=== PATIENT | male | born 1975 | race Two or more races ===

== ENCOUNTER 2016-06-09 18:28 | Emergency (ER) | payer OTHER ==
--- NOTE | 2016-06-09 19:41 | DX ---
PA and Lateral Chest History: Productive cough x1 week worsening today in a 40-year-old male; no previous studies are avai lable for comparison. Findings: The heart and mediastinal contours are normal. Pulmonary vascularity is normal. There is c entral peribronchial thickening. Mild hyperexpansion is suspected. No pleural effusion is seen. There are no alveolar opacities seen to suggest pneumonia. Impression: Findings most consistent with bronchitis are noted.
[2016-06-09] MEDS ORDERED: ACETAMINOPHEN 500 MG TAB PO ONE (21:45)
[2016-06-09] MEDS ORDERED: ACETAMINOPHEN 500 MG TAB ONE (21:46)
[2016-06-09 22:29] VITALS: RESP 18
--- NOTE | 2016-06-09 23:09 | EDPHY ---
H & P Time Seen by Provider: 06/09/16 22:02 HPI/ROS: HPI Cough. 40-year-old male by private vehicle. Primary care is through [facility]. Patient is HIV positive. He is currently not on anti retroviral therapy. He complains of a cough with muscle aches and joint aches for the last week. He reports that before this he had a diarrheal illness. He reports that he was seen at [facility] about a week ago for this complaint. He has not been placed on antibiotics. He reports he has been vaccinated for influenza. Cough is described as dry. He denies fever. He has been feeling more fatigued lately. ROS: Constitutional: No fever, no chills. As above. Eyes: No discharge. No changes in vision. ENT: No sore throat. No nasal congestion or rhinorrhea. Respiratory: As above. No shortness of breath. Cardiac: No chest pain, no palpitations. Gastrointestinal: No abdominal pain, no vomiting, no diarrhea. Genitourinary: No hematuria. No dysuria or increased frequency with urination. Musculoskeletal: No back pain. No neck pain. No myalgias or arthralgias. Skin: No rashes. Neurological: No headache. No focal weakness or altered sensation. Past medical history: As above Social history: He is here by himself. Nonsmoker. Methamphetamine abuse. Homeless. Physical Exam: General Appearance: Alert, sleepy but easily arousable. This patient is responding to questions appropriately and in full sentences. This patient appears well-hydrated and well-nourished. Eyes: Pupils equal and round no pallor or injection. No lid edema, erythema or injection. ENT, Mouth: Mucous membranes are moist. No thrush. The pharyngeal tissues are unremarkable. No edema or swelling. No asymmetry suggestive of abscess. No erythema or exudates. Respiratory: There are no retractions, lungs are clear to auscultation with good air movement bilaterally. Cardiovascular: Regular rate and rhythm. No murmur. Gastrointestinal: Abdomen is soft and nontender, no masses, bowel sounds normal. No focal tenderness at McBurney's point. No Gutierrez sign. Neurological: Motor sensory function is grossly intact. Cranial nerves are normal. Gait is normal. Skin: Warm and dry, no rashes. Musculoskeletal: Neck is supple and nontender. No cervical or submental, submandibular lymphadenopathy. Extremities are symmetrical. All joints range without pain or impingement. Psychiatric: No agitation. No depression. Database: Rapid influenza a-negative. EKG: Imaging: Chest x-ray PA and lateral; the cardiac mediastinal silhouette is unremarkable. No evidence of infiltrate or pneumothorax. Mild bronchitis noted. No other acute cardiopulmonary disease process noted. Interpreted by me. Procedures: Emergency department course: From triage he had chest x-ray ordered and rapid influenza. 11:20 p.m., spoke with [facility] nurse. Patient was seen 1 week ago at [facility] for diarrhea. He had an unremarkable workup at that time. CBC was unremarkable with a white blood cell count of 5.6. Electrolytes were normal. He is not on anti-retroviral therapy at this time. No antibiotics were prescribed. Last CD4 count was 200 in February of 2016. He has a history of methamphetamine abuse with recent use and is homeless. If discharged from our emergency department, he will be seen in clinic [facility] tomorrow. IV was placed. Will check CBC. 1 L of fluid to be given. His vital signs have been reviewed. He was borderline febrile in triage at 37.6. He was given 1 g of Tylenol. Repeat vital signs at 10:22 p.m. temperature 36.9degrees. Vital signs otherwise normal. CBC shows thrombocytopenia with a platelet count of 138 but is otherwise unremarkable 11:50 p.m., patient re-evaluated. Discussed results of CBC and chest x-ray with him. Patient given 1 500 mg dose of azithromycin in the emergency department for possible early pneumonia. His vital signs were reviewed and are normal. I feel he is safe for discharge. I discussed follow-up with a [facility] in clinic tomorrow. They will see him at the [facility]. He is in agreement with this plan. Return to emergency department precautions were discussed with him. All of his questions were answered. He was discharged in good condition. Differential Diagnosis: The differential diagnosis on this patient includes but is not limited to viral upper respiratory infection, pneumonia, influenza. This represents a partial list of diagnoses considered. These considerations are based on history, physical exam, past history, reassessment and diagnostic testing. Smoking Status: Light smoker Constitutional: Initial Vital Signs Temperature (C) 37.6 C 06/09/16 19:08 Heart Rate 88 06/09/16 19:08 Respiratory Rate 17 06/09/16 19:08 Blood Pressure 133/87 H 06/09/16 19:08 O2 Sat (%) 97 06/09/16 19:08 O2 Delivery Mode Room Air Allergies/Adverse Reactions: No Known Allergies Allergy (Unverified 06/09/16 19:07) Home Medications: Medication Instructions Recorded Amitriptyline HCl 06/09/16 Azithromycin [Zithromax] 250 mg PO DAILY #6 tab 06/09/16 Wellbutrin Sr 06/09/16 Medical Decision Making - Data Points Laboratory Results: Laboratory Results 06/09/16 23:20 06/09/16 06/09/16 23:20 19:15 WBC 4.84 10^3/uL (3.80-9.50) RBC 4.62 10^6/uL (4.40-6.38) Hgb 14.2 g/dL (13.7-17.5) Hct 41.3 % (40.0-51.0) MCV 89.4 fL (81.5-99.8) MCH 30.7 pg (27.9-34.1) MCHC 34.4 g/dL (32.4-36.7) RDW 12.5 % (11.5-15.2) Plt Count 138 L 10^3/uL (150-400) MPV 9.7 fL (8.7-11.7) Neut % (Auto) Not Reported Lymph % (Auto) Not Reported [place] % (Auto) Not Reported Eos % (Auto) Not Reported Baso % (Auto) Not Reported Nucleat RBC Rel Count 0.0 % (0.0-0.2) Absolute Neuts (auto) Not Reported Absolute Lymphs (auto) Not Reported Absolute Monos (auto) Not Reported Absolute Eos (auto) Not Reported Absolute Basos (auto) Not Reported Absolute Nucleated RBC 0.00 10^3/uL (0-0.01) Immature Gran % Not Reported Immature Gran # Not Reported Platelet Estimate Pending Influenza Typ A,B (DFA) NEGATIVE FOR FLU (NEGATIVE) Medications Given: Discontinued Medications Acetaminophen (Tylenol) 1,000 mg PO EDNOW ONE Stop: 06/09/16 21:46 Last Admin: 06/09/16 21:47 Dose: 1,000 mg Sodium Chloride (Ns) 1,000 mls @ 0 mls/hr IV ONCE ONE PRN Reason: Wide Open Stop: 06/09/16 23:22 Last Admin: 06/09/16 23:33 Dose: 1,000 mls Departure - Departure Disposition: Home, Routine, Self-Care Clinical Impression: Bronchitis Condition: Good Instructions: Acute Bronchitis (ED) Additional Instructions: Read and follow provided instructions. Follow-up with your primary care physician tomorrow at the [facility] as discussed. Take medication as prescribed through entire course of treatment. Return to the emergency department for worsening cough, fever, difficulty breathing or other serious concerns. Referrals: NONE *PRIMARY CARE P,. [Primary Care Provider] - As per Instructions Prescriptions: Azithromycin [Zithromax] 250 mg PO DAILY #6 tab
[2016-06-09] MEDS ORDERED: NS 1,000 ML IV ONE (23:21)
[2016-06-09 23:39] LABS: ADD MORPH? NO; FRAGMENT RBC FLAG 0 (0-99); HEMATOCRIT 41.3 % (40.0-51.0); HEMOGLOBIN 14.2 g/dL (13.7-17.5); LEFT SHIFT FLG 0 (0-99); LIPEMIA HEMOLYSIS FLAG 90 (0-99); MEAN CELL HEMOGLOBIN 30.7 pg (27.9-34.1); MEAN CELL HEMOGLOBIN CONCENTR. 34.4 g/dL (32.4-36.7); MEAN CELL VOLUME 89.4 fL (81.5-99.8); MEAN PLATELET VOLUME 9.7 fL (8.7-11.7); PLATELET CLUMPS FLAG 0 (0-99); PLATELET COUNT 138 10^3/uL (150-400); RED BLOOD CELL COUNT 4.62 10^6/uL (4.40-6.38); RED CELL DISTRIBUTION WIDTH 12.5 % (11.5-15.2)
[2016-06-09 23:40] LABS: ADD DIFF? YES; ADD SCAN? NO; ATYPICAL LYMPHOCYTE FLAG 100 (0-99)
[2016-06-09] MEDS ORDERED: AZITHROMYCIN 250 MG TAB PO ONE (23:53)
[2016-06-09 23:57] LABS: PLATELET ESTIMATE DECREASED (ADEQ)
[2016-06-10 00:48] VITALS: BP 114/73; PULSE 84; TEMP 98.2; O2SAT 96
== END 2016-06-10 00:59 | disposition home or self-care (01) ==
DX: J20.9 Acute bronchitis, unspecified (principal); F17.200 Nicotine dependence, unspecified, uncomplicated

== ENCOUNTER 2016-07-09 22:56 | Emergency (ER) | payer OTHER ==
[2016-07-09] MEDS ORDERED: NS 1,000 ML IV ONE ×2 (23:22)
[2016-07-09 23:31] LABS: % IMMATURE GRANULYOCYTES 0.3 % (0.0-1.1); ABSOLUTE IMMATURE GRANULOCYTES 0.02 10^3/uL (0.00-0.10); ADD DIFF? NO; ADD MORPH? NO; ADD SCAN? NO; ATYPICAL LYMPHOCYTE FLAG 80 (0-99); FRAGMENT RBC FLAG 0 (0-99); HEMATOCRIT 43.5 % (40.0-51.0); HEMOGLOBIN 14.7 g/dL (13.7-17.5); LEFT SHIFT FLG 0 (0-99); LIPEMIA HEMOLYSIS FLAG 90 (0-99); MEAN CELL HEMOGLOBIN 30.7 pg (27.9-34.1); MEAN CELL HEMOGLOBIN CONCENTR. 33.8 g/dL (32.4-36.7); MEAN CELL VOLUME 90.8 fL (81.5-99.8); PLATELET CLUMPS FLAG 0 (0-99); PLATELET COUNT 182 10^3/uL (150-400); RED BLOOD CELL COUNT 4.79 10^6/uL (4.40-6.38); RED CELL DISTRIBUTION WIDTH 12.3 % (11.5-15.2)
[2016-07-09 23:44] LABS: OCCULT BLOOD FECES NEGATIVE (NEGATIVE)
[2016-07-09 23:47] LABS: O/P DESCRIPTION LIQUID TAN STOOL; O/P DIRECT NONE SEEN (NONE SEEN)
[2016-07-09 23:50] LABS: ALANINE AMINOTRANSFERASE 35 IU/L (21-72); ALBUMIN 3.9 g/dL (3.5-5.0); ALKALINE PHOSPHATASE 51 IU/L (38-126); ANION GAP 7 mEq/L (8-16); ASPARTATE AMINOTRANSFERASE 25 IU/L (17-59); BILIRUBIN,TOTAL 0.5 mg/dL (0.1-1.4); BILIRUBIN-CONJUGATED 0.3 mg/dL (0.0-0.5); BILIRUBIN-UNCONJUGATED 0.2 mg/dL (0.0-1.1); CALCIUM 9.1 mg/dL (8.5-10.4); CARBON DIOXIDE 30 mEq/l (22-31); CHLORIDE 101 mEq/L (97-110); GLOMERULAR FILTRATION RATE > 60; GLUCOSE 53 mg/dL (70-100); POTASSIUM 3.9 mEq/L (3.5-5.2); SODIUM 138 mEq/L (134-144); TOTAL PROTEIN 7.1 g/dL (6.3-8.2)
[2016-07-10] MEDS ORDERED: ONDANSETRON 4MG PREPACK#2 BTL TAKEHOME ONE ×2 (00:37→03:43)
--- NOTE | 2016-07-10 00:37 | EDPHY ---
H & P Stated Complaint: Explosive Stools HPI/ROS: Chief complaint: Nausea, vomiting and diarrhea History of present illness: This is a 40-year-old male, who is HIV positive, who presents to the emergency department for evaluation of nausea, vomiting and diarrhea. Patient reports the sudden onset of symptoms this evening. Reports mild nausea and vomiting described as nonbloody, nonbilious. However reports significant diarrhea described as watery without mucus or blood in it. Symptoms have been persistent. He denies specific precipitating factors. He denies alleviating factors. He denies other associated signs or symptoms including no fevers, no abdominal pain, no urinary symptoms. He was recently treated with azithromycin for bronchitis. He denies sick contacts or foreign travel. Review of systems: A 10 point review of systems was obtained and other than described above was negative - Personal History Current Tetanus/Diphtheria Vaccine: Unsure Current Tetanus Diphtheria and Acellular Pertussis (TDAP): Unsure - Medical/Surgical History Hx Asthma: No Hx Chronic Respiratory Disease: No Hx Diabetes: No Hx Cardiac Disease: No Hx Renal Disease: No Hx Cirrhosis: No Hx Alcoholism: No Hx HIV/AIDS: Yes Hx Splenectomy or Spleen Trauma: No Other PMH: HIV+ - Social History Smoking Status: Light smoker - Physical Exam Exam: General Appearance: Alert, nontoxic. Eyes: Pupils equal and round no pallor or injection. ENT, Mouth: Mucous membranes moist. Respiratory: There are no retractions, lungs are clear to auscultation. Cardiovascular: Regular rate and rhythm. Gastrointestinal: Abdomen is soft and nontender, no masses, bowel sounds normal. Neurological: Alert and oriented x4. Strength and sensation intact and symmetrical. Skin: Warm and dry, no rashes. Musculoskeletal: Neck is supple nontender. Extremities are symmetrical, full range of motion. Psychiatric: Patient is oriented X 3, there is no agitation. Constitutional: Initial Vital Signs Temperature (C) 36.5 C 07/09/16 23:19 Heart Rate 75 07/09/16 23:19 Respiratory Rate 12 07/09/16 23:19 Blood Pressure 113/75 07/09/16 23:19 O2 Sat (%) 95 07/09/16 23:19 O2 Delivery Mode Room Air Allergies/Adverse Reactions: No Known Allergies Allergy (Unverified 06/09/16 19:07) Home Medications: Medication Instructions Recorded Amitriptyline HCl 06/09/16 Azithromycin [Zithromax] 250 mg PO DAILY #6 tab 06/09/16 Wellbutrin Sr 06/09/16 Ondansetron Odt [Zofran Odt 4 mg 4 mg PO Q4 #6 tab 07/10/16 (*)] Medical Decision Making ED Course/Re-evaluation: Patient is seen under the supervision of my secondary supervising physician Dr. Jim Garcia. Patient presents to the emergency depart with nausea, vomiting and significant diarrhea. On presentation he is nontoxic. Afebrile and vital signs are stable. Physical exam is unremarkable. Blood studies largely unremarkable. Stool cultures are obtained, what is reported this evening is unremarkable including no white blood cells in the stool, the rest of the stool studies are pending and should be reported tomorrow. Certainly I am concerned for C difficile. However given no white blood cells we will wait until cultures are reported. Patient will be orally challenges and if he is tolerating oral challenges will be discharged. Care of patient will be turned over to my attending physician Dr. Jim Garcia at end of shift. Differential Diagnosis: Included but not limited to infectious diarrhea including C difficile, gastritis , gastroenteritis, biliary tract disease pancreatitis, colitis - Data Points Laboratory Results: Laboratory Results 07/09/16 23:15 07/09/16 23:15 07/09/16 07/09/16 07/09/16 23:24 23:15 23:15 WBC 5.76 10^3/uL 10^3/uL (3.80-9.50) RBC 4.79 10^6/uL 10^6/uL (4.40-6.38) Hgb 14.7 g/dL g/dL (13.7-17.5) Hct 43.5 % % (40.0-51.0) MCV 90.8 fL fL (81.5-99.8) MCH 30.7 pg pg (27.9-34.1) MCHC 33.8 g/dL g/dL (32.4-36.7) RDW 12.3 % % (11.5-15.2) Plt Count 182 10^3/uL 10^3/uL (150-400) MPV 10.0 fL fL (8.7-11.7) Neut % (Auto) 49.0 % % (39.3-74.2) Lymph % (Auto) 33.3 % % (15.0-45.0) [place] % (Auto) 10.1 % % (4.5-13.0) Eos % (Auto) 6.6 % % (0.6-7.6) Baso % (Auto) 0.7 % % (0.3-1.7) Nucleat RBC Rel Count 0.0 % % (0.0-0.2) Absolute Neuts (auto) 2.82 10^3/uL 10^3/uL (1.70-6.50) Absolute Lymphs (auto) 1.92 10^3/uL 10^3/uL (1.00-3.00) Absolute Monos (auto) 0.58 10^3/uL 10^3/uL (0.30-0.80) Absolute Eos (auto) 0.38 10^3/uL 10^3/uL (0.03-0.40) Absolute Basos (auto) 0.04 10^3/uL 10^3/uL (0.02-0.10) Absolute Nucleated RBC 0.00 10^3/uL 10^3/uL (0-0.01) Immature Gran % 0.3 % % (0.0-1.1) Immature Gran # 0.02 10^3/uL 10^3/uL (0.00-0.10) Sodium 138 mEq/L mEq/L (134-144) Potassium 3.9 mEq/L mEq/L (3.5-5.2) Chloride 101 mEq/L mEq/L (97-110) Carbon Dioxide 30 mEq/l mEq/l (22-31) Anion Gap 7 mEq/L L mEq/L (8-16) BUN 19 mg/dL mg/dL (7-23) Creatinine 1.0 mg/dL mg/dL (0.7-1.3) Estimated GFR > 60 Glucose 53 mg/dL L mg/dL (70-100) Calcium 9.1 mg/dL mg/dL (8.5-10.4) Total Bilirubin 0.5 mg/dL mg/dL (0.1-1.4) Conjugated Bilirubin 0.3 mg/dL mg/dL (0.0-0.5) Unconjugated Bilirubin 0.2 mg/dL mg/dL (0.0-1.1) AST 25 IU/L IU/L (17-59) ALT 35 IU/L IU/L (21-72) Alkaline Phosphatase 51 IU/L IU/L (38-126) Total Protein 7.1 g/dL g/dL (6.3-8.2) Albumin 3.9 g/dL g/dL (3.5-5.0) Lipase 120.0 IU/L IU/L (23-300) Stool Concentration Pending Stool Occult Bld Scrn NEGATIVE (NEGATIVE) Stool Ova & Parasites LIQUID GIBSON STOOL Parasite Trichrome Pending C. difficile Tox (PCR) Cancelled Direct Microscop Exam NONE SEEN (NONE SEEN) Microbiology Results: MICROBIOLOGY 07/09/16 23:25 Stool Fecal Leukocyte Stain - Final Medications Given: Discontinued Medications Sodium Chloride (Ns) 1,000 mls @ 0 mls/hr IV ONCE ONE PRN Reason: Wide Open Stop: 07/09/16 23:23 Last Admin: 07/09/16 23:23 Dose: 1,000 mls Sodium Chloride (Ns) 1,000 mls @ 0 mls/hr IV ONCE ONE PRN Reason: Wide Open Stop: 07/09/16 23:23 Last Admin: 07/09/16 23:24 Dose: 1,000 mls Ondansetron HCl (Zofran) 4 mg IVP EDNOW ONE Stop: 07/10/16 01:24 Last Admin: 07/10/16 01:29 Dose: 4 mg Departure - Departure Disposition: Home, Routine, Self-Care Clinical Impression: Vomiting Qualifiers: Vomiting type: unspecified Vomiting Intractability: non-intractable Nausea presence: with nausea Qualified Code(s): R11.2 - Nausea with vomiting, unspecified Diarrhea Qualifiers: Diarrhea type: unspecified type Qualified Code(s): R19.7 - Diarrhea, unspecified Condition: Good Instructions: Acute Nausea and Vomiting (ED), Acute Diarrhea (ED) Additional Instructions: Follow-up with your primary care doctor for continued evaluation and care Use Zofran as directed as needed for nausea and vomiting Please call the emergency department tomorrow to follow up on your stool studies If symptoms worsen or new symptoms develop return to the emergency department for recheck Referrals: [facility] ,. [Primary Care Provider] - As per Instructions Prescriptions: Ondansetron Odt [Zofran Odt 4 mg (*)] 4 mg PO Q4 #6 tab
[2016-07-10] MEDS ORDERED: ONDANSETRON 4 MG/2 ML VIAL IVP ONE (01:23)
[2016-07-10 02:20] VITALS: RESP 18
[2016-07-10 03:54] VITALS: BP 115/83; PULSE 76; TEMP 98.2; O2SAT 98
[2016-07-11 18:47] LABS: O/P CONCENTRATION NONE SEEN (NONE SEEN); O/P TRICHROME NONE SEEN (NONE SEEN)
== END 2016-07-10 03:55 | disposition home or self-care (01) ==
LOC: EDUNIT#
DX: R19.7 Diarrhea, unspecified (principal); F17.200 Nicotine dependence, unspecified, uncomplicated; R11.2 Nausea with vomiting, unspecified; B20 Human immunodeficiency virus [HIV] disease
CPT/HCPCS: 96374; J2405

== ENCOUNTER 2016-08-25 20:25 | Emergency (ER) | payer OTHER ==
--- NOTE | 2016-08-25 20:36 | EDPHY ---
H & P Stated Complaint: pt wants psych eval HPI/ROS: HPI CHIEF COMPLAINT: "I would like to speak to Psychiatry" HISTORY OF PRESENT ILLNESS: This patient 40 year male significant past medical history for schizoaffective disorder who presents emergency room by private vehicle requesting that he needs to speak to [facility]. Denies being suicidal denies being depressed denies want hurt himself or anybody else. He tells me that needs to speak to [facility] as he is post stay with them for 6 weeks. It is unclear exactly what he means by this. He is requesting drug screen mental health evaluation. Unclear exactly why he is requesting this. Past Medical History: Schizoaffective disorder Past Surgical History: denies recent surgical history Social History: Lives in [place], denies drugs alcohol tobacco products Family History: Noncontributory ROS REVIEW OF SYSTEMS: A comprehensive 10 point review of systems is otherwise negative aside from elements mentioned in the history of present illness. Exam Constitutional appears well nontoxic, triage nursing summary reviewed, vital signs reviewed, awake/alert. Eyes normal conjunctivae and sclera, EOMI, PERRLA. HENT normal inspection, atraumatic, moist mucus membranes, no epistaxis, neck supple/ no meningismus, no raccoon eyes. Respiratory clear to auscultation bilaterally, normal breath sounds, no respiratory distress, no wheezing. Cardiovascular rate normal, regular rhythm, no murmur, no edema, distal pulses normal. Gastrointestinal soft, non-tender, no rebound, no guarding, normal bowel sounds, no distension, no pulsatile mass. Genitourinary no CVA tenderness. Musculoskeletal no midline vertebral tenderness, full range of motion, no calf swelling, no tenderness of extremities, no meningismus, good pulses, neurovascularly intact. Skin pink, warm, & dry, no rash, skin atraumatic. Neurologic awake, alert and oriented x 3, AAOx3, moves all 4 extremities equally, motor intact, sensory intact, CN II-XII intact, normal cerebellar, normal vision, normal speech. Psychiatric normal mood/affect. Heme/Lymph/Immune no lymphadenopathy. Differential Diagnosis: Includes but is not limited to in a particular order: Depression, wanting to speak to mental health, mental health resources Medical Decision Making: plan for patient says he wants to speak to mental health will provide medical clearance of blood screening drug test. Re-evaluation: 2209: at this time this patient now tells me that he is only here to get a drug screen so that he can go to [facility]. I explained that is not appropriate. We do not do that. However he states he really did want to speak to mental health. He denies wanting to hurt himself or anybody else, cooperative he is requesting discharge. I have no reason to keep him here for some on a hold. He is, cooperative. His blood work has been reviewed drug screen is negative. He will Be discharged from the ER. Source: Patient - Personal History Current Tetanus/Diphtheria Vaccine: Unsure Current Tetanus Diphtheria and Acellular Pertussis (TDAP): Unsure - Medical/Surgical History Hx Asthma: No Hx Chronic Respiratory Disease: No Hx Diabetes: No Hx Cardiac Disease: No Hx Renal Disease: No Hx Cirrhosis: No Hx Alcoholism: No Hx HIV/AIDS: Yes Hx Splenectomy or Spleen Trauma: No Other PMH: HIV+. schizoaffective d/o - Social History Smoking Status: Light smoker Constitutional: Initial Vital Signs Temperature (C) 36.7 C 08/25/16 20:28 Heart Rate 79 08/25/16 20:28 Respiratory Rate 18 08/25/16 20:28 Blood Pressure 134/92 H 08/25/16 20:28 O2 Sat (%) 98 08/25/16 20:28 Allergies/Adverse Reactions: No Known Allergies Allergy (Unverified 06/09/16 19:07) Home Medications: Medication Instructions Recorded Genvoya Tablet 08/25/16 Medical Decision Making - Data Points Laboratory Results: Laboratory Results 08/25/16 21:05 08/25/16 21:05 08/25/16 08/25/16 08/25/16 21:05 21:05 21:05 WBC 6.30 10^3/uL 10^3/uL (3.80-9.50) RBC 5.18 10^6/uL 10^6/uL (4.40-6.38) Hgb 15.7 g/dL g/dL (13.7-17.5) Hct 47.1 % % (40.0-51.0) MCV 90.9 fL fL (81.5-99.8) MCH 30.3 pg pg (27.9-34.1) MCHC 33.3 g/dL g/dL (32.4-36.7) RDW 12.6 % % (11.5-15.2) Plt Count 166 10^3/uL 10^3/uL (150-400) MPV 9.7 fL fL (8.7-11.7) Neut % (Auto) 46.9 % % (39.3-74.2) Lymph % (Auto) 38.1 % % (15.0-45.0) [place] % (Auto) 10.5 % % (4.5-13.0) Eos % (Auto) 2.9 % % (0.6-7.6) Baso % (Auto) 0.8 % % (0.3-1.7) Nucleat RBC Rel Count 0.0 % % (0.0-0.2) Absolute Neuts (auto) 2.96 10^3/uL 10^3/uL (1.70-6.50) Absolute Lymphs (auto) 2.40 10^3/uL 10^3/uL (1.00-3.00) Absolute Monos (auto) 0.66 10^3/uL 10^3/uL (0.30-0.80) Absolute Eos (auto) 0.18 10^3/uL 10^3/uL (0.03-0.40) Absolute Basos (auto) 0.05 10^3/uL 10^3/uL (0.02-0.10) Absolute Nucleated RBC 0.00 10^3/uL 10^3/uL (0-0.01) Immature Gran % 0.8 % % (0.0-1.1) Immature Gran # 0.05 10^3/uL 10^3/uL (0.00-0.10) Sodium 137 mEq/L mEq/L (134-144) Potassium 4.0 mEq/L mEq/L (3.5-5.2) Chloride 102 mEq/L mEq/L (97-110) Carbon Dioxide 26 mEq/l mEq/l (22-31) Anion Gap 9 mEq/L mEq/L (8-16) BUN 24 mg/dL H mg/dL (7-23) Creatinine 1.1 mg/dL mg/dL (0.7-1.3) Estimated GFR > 60 Glucose 88 mg/dL mg/dL (70-100) Calcium 9.4 mg/dL mg/dL (8.5-10.4) Salicylates < 1.0 mg/dL L mg/dL (2.0-20.0) Urine Opiates Screen NEGATIVE (NEGATIVE) Acetaminophen < 10 mcg/mL L mcg/mL (10.0-30.0) Urine Barbiturates NEGATIVE (NEGATIVE) Ur Phencyclidine Scrn NEGATIVE (NEGATIVE) Ur Amphetamine Screen NEGATIVE (NEGATIVE) U Benzodiazepines Scrn NEGATIVE (NEGATIVE) Urine Cocaine Screen NEGATIVE (NEGATIVE) U Marijuana (THC) Screen NEGATIVE (NEGATIVE) Ethyl Alcohol < 10 mg/dL mg/dL (0-10) Departure - Departure Disposition: Home, Routine, Self-Care Condition: Good Instructions: Normal Exam (ED) Referrals: UNKNOW,OBRIEN [Other] - As per Instructions
[2016-08-25 21:09] LABS: % IMMATURE GRANULYOCYTES 0.8 % (0.0-1.1); ABSOLUTE IMMATURE GRANULOCYTES 0.05 10^3/uL (0.00-0.10); ADD DIFF? NO; ADD MORPH? NO; ADD SCAN? NO; ATYPICAL LYMPHOCYTE FLAG 10 (0-99); FRAGMENT RBC FLAG 0 (0-99); HEMATOCRIT 47.1 % (40.0-51.0); HEMOGLOBIN 15.7 g/dL (13.7-17.5); LEFT SHIFT FLG 10 (0-99); LIPEMIA HEMOLYSIS FLAG 80 (0-99); MEAN CELL HEMOGLOBIN 30.3 pg (27.9-34.1); MEAN CELL HEMOGLOBIN CONCENTR. 33.3 g/dL (32.4-36.7); MEAN CELL VOLUME 90.9 fL (81.5-99.8); MEAN PLATELET VOLUME 9.7 fL (8.7-11.7); PLATELET CLUMPS FLAG 0 (0-99); PLATELET COUNT 166 10^3/uL (150-400); RED BLOOD CELL COUNT 5.18 10^6/uL (4.40-6.38); RED CELL DISTRIBUTION WIDTH 12.6 % (11.5-15.2)
[2016-08-25 21:27] LABS: ANION GAP 9 mEq/L (8-16); CALCIUM 9.4 mg/dL (8.5-10.4); CARBON DIOXIDE 26 mEq/l (22-31); CHLORIDE 102 mEq/L (97-110); CREATININE 1.1 mg/dL (0.7-1.3); ETHANOL SERUM < 10 mg/dL (0-10); GLOMERULAR FILTRATION RATE > 60; GLUCOSE 88 mg/dL (70-100); SALICYLATE < 1.0 mg/dL (2.0-20.0); SODIUM 137 mEq/L (134-144)
[2016-08-25 22:26] VITALS: BP 120/77; PULSE 70; RESP 14; TEMP 97.9; O2SAT 94
== END 2016-08-25 22:26 | disposition home or self-care (01) ==
DX: F25.9 Schizoaffective disorder, unspecified (principal); B20 Human immunodeficiency virus [HIV] disease; F17.200 Nicotine dependence, unspecified, uncomplicated
CPT/HCPCS: 80305; G0480